=== PATIENT | male | born 1975 | race Caucasian/White ===

== ENCOUNTER → 2017-03-06 | Emergency (ER) | payer OTHER ==
[~2017-03-06] VITALS: Ht 188 cm; Wt 97.5 kg
== END | disposition left against medical advice (07) ==
LOC: ER 17:45
DX: Z53.20 Procedure and treatment not carried out because of patient's decision for unspecified reasons (principal)

== ENCOUNTER 2017-03-19 16:09 | Emergency (ER) | payer OTHER ==
[~2017-03-19] VITALS: Ht 188 cm; Wt 95.3 kg
== END 2017-03-19 21:51 | disposition home or self-care (01) ==
LOC: ER 16:09
DX: S92.321A Displaced fracture of second metatarsal bone, right foot, initial encounter for closed fracture (principal); S90.31XS Contusion of right foot, sequela; W22.8XXS Striking against or struck by other objects, sequela